=== PATIENT | female | born 1970 | race Hispanic/Latino ===

== ENCOUNTER 2020-06-30 13:04 | Emergency (ER) | payer OTHER ==
[~2020-06-30] VITALS: Ht 157.5 cm; Wt 81.6 kg
[2020-06-30] MEDS ORDERED: ONDANSETRON HCL INJ 2MG/ML 2ML 2 MG/ML VIAL IV STA (13:10)
[2020-06-30] MEDS ORDERED: SODIUM CHLORIDE 0.9% 1000ML 1,000 ML IV STA (13:10)
[2020-06-30] MEDS ORDERED: PANTOPRAZOLE 40 MG 10ML VIAL IV STA (13:10)
[2020-06-30] MEDS ORDERED: KETOROLAC TROMETHAMINE 30 MG/ML VIAL IV STA (13:10)
[2020-06-30] MEDS ORDERED: MORPHINE SULFATE INJ 4 MG/ML INJ 1ML IV PRN (13:15)
[2020-06-30] MEDS ORDERED: MAGNESIUM/ALUMINUM/SIMETHICONE 30 ML UDC PO ONE (13:15)
[2020-06-30 13:37] LABS: BASOPHILS % 0.7 % (0.0-1.0); EOSINOPHILS # (AUTO) 0.1 (0.0-0.4); EOSINOPHILS % 1.3 % (0.0-6.0); HEMATOCRIT 40.4 % (34.2-44.1); HEMOGLOBIN 13.6 g/dL (12.0-16.0); LYMPHOCYTES # (AUTO) 1.8 (1.0-3.2); LYMPHOCYTES % 38.3 % (18.0-39.1); MEAN CORPUSCULAR HEMOGLOBIN 28.2 pg (28-32); MEAN CORPUSCULAR HGB CONC 33.7 g/dL (31-35); MEAN CORPUSCULAR VOLUME 83.8 fL (81-99); MONOCYTES # (AUTO) 0.3 (0.2-0.8); MONOCYTES % 6.1 % (4.4-11.3); NEUTROPHILS # (AUTO) 2.5 (2.1-6.9); NEUTROPHILS % 53.4 % (38.7-80.0); PLATELET COUNT 267 x10e3/uL (140-360); RED BLOOD COUNT 4.82 x10e6/uL (3.6-5.1); RED CELL DISTRIBUTION WIDTH 13.2 % (11.7-14.4)
--- NOTE | 2020-06-30 13:42 | Emergency Department Note ---
History of Present Illnes History of Present Illness Chief Complaint: Abdominal Complaints History of Present Illness This is a 49 year old female arrives to the ED with complaints of diffuse abdominal pain intermittent for the past one month. Patient denies any nausea vomiting or diarrhea. Patient states her PCP given her ciprofloxacin comments that she controls her diabetes that she wants a clear answer which is why she came to the ED today. Chief Complaint Comment PATIENT IN FROM [facility] WITH COMPLAINTS OF ABDOMINAL PAIN OFF AND ON X 1 MONTH; STATES SHE SAW HER PRIMARY CARE PHYSICIAN ON MONDAY AND WAS GIVEN ABX AND TOLD TO SEE A GI SPECIALIST, BUT SHE STATES SHE DID NOT HAVE TIME TO WAIT. PATIENT ALSO WITH UNCONTROLLED DIABETES, PATIENT STATES THAT SHE HAS NOT BEEN TAKING HER DIABETIC MEDICATION X 1 YEAR. PATIENT ALERT AND ORIENTED, RESP EVEN AND NONLABORED, APPEARS IN NO DISTRESS, RATES PAIN 8/10. DENIES NAUSEA, VOMITING, OR DIARRHEA Historian: Patient Arrival Mode: Car Onset (how long ago): week(s) Severity: mild Duration (how long): week(s) Timing of current episode: constant Progression: waxing and waning Chronicity: new Context: Denies recent illness, Denies recent immobilization Relieving factors: none Exacerbating factors: none Associated symptoms: Denies fever/chills, Denies loss of appetite, Denies nausea/vomiting, Denies weakness Past Medical/Family History Physician Review I have reviewed the patient's past medical and family history. Any updates have been documented here. Past Medical History Recent Fever: No Clinical Suspicion of Infectio: No New/Unexplained Change in Ment: No Past Medical History: Hypertension, Diabetes Past Surgical History: Hysterectomy Social History Smoking Cessation: Never Smoker Physically hurt or threatened: No Other Last Tetanus: U Review of Systems Review of Systems Constitutional: Reports no symptoms EENTM: Reports no symptoms Cardiovascular: Reports no symptoms Respiratory: Reports no symptoms Gastrointestinal: Reports as per HPI, Reports abdominal pain Genitourinary: Reports no symptoms Musculoskeletal: Reports no symptoms Integumentary: Reports no symptoms Neurological: Reports no symptoms Psychological: Reports no symptoms Endocrine: Reports no symptoms Hematological/Lymphatic: Reports no symptoms Physical Exam Related Data Allergies: Coded Allergies: No Known Allergies (Unverified , 08/23/19) Triage Vital Signs Vital Signs Date Time Temp Pulse Resp B/P (MAP) Pulse Ox O2 Delivery O2 Flow Rate FiO2 06/30/20 13:07 98.2 86 18 160/71 98 Room Air Vital signs reviewed: Yes Physical Exam CONSTITUTIONAL Constitutional: Present well-developed, Present well-nourished HENT HENT: Present normocephalic, Present atraumatic, Present oropharynx clear/[address], Present nose normal HENT L/R: Present left ext ear normal, Present right ext ear normal EYES Eyes: Reports PERRL, Reports conjunctivae normal NECK Neck: Present ROM normal PULMONARY Pulmonary: Present effort normal, Present breath sounds normal CARDIOVASCULAR Cardiovascular: Present regular rhythm, Present heart sounds normal, Present capillary refill normal, Present normal rate GASTROINTESTINAL Abdominal: Present soft, Present nontender, Present bowel sounds normal GENITOURINARY Genitourinary: Present exam deferred SKIN Skin: Present warm, Present dry MUSCULOSKELETAL Musculoskeletal: Present ROM normal NEUROLOGICAL Neurological: Present alert, Present oriented x 3, Present no gross motor or sensory deficits PSYCHOLOGICAL Psychological: Present mood/affect normal, Present judgement normal Results Laboratory Laboratory Laboratory Tests Test 06/30/20 13:15 06/30/20 13:14 Lab results reviewed: Yes Imaging Imaging results reviewed: Yes Impressions IMPRESSION: 1. Mild nonspecific fat stranding anterior to the urinary bladder which may represent sequelae of prior hysterectomy. Otherwise no acute intra-abdominal or intrapelvic abnormality. Assessment & Plan Medical Decision Making MDM This patient presents with abdominal pain of unclear etiology. A CT scan was performed to evaluate for potential causes of the abdominal pain, however, neither the clinical exam nor the CT has identified an emergent etiology for the abdominal pain. Specifically, given the benign exam, the laboratory studies, and unremarkable CT, I have a very low suspicion for appendicitis, ischemic bowel, bowel perforation, or any other life threatening disease. I have discussed with the patient the level of uncertainty with undifferentiated abdominal pain and clearly explained the need to follow-up as noted on the discharge instructions, or return to the Emergency Department immediately if the pain worsens, develops fever, persistent and uncontrollable vomiting, or for any new symptoms or concerns. Assessment & Plan Final Impression: (1) UTI (urinary tract infection) Depart Disposition: HOME, SELF-CARE Last Vital Signs Date Time Temp Pulse Resp B/P (MAP) Pulse Ox O2 Delivery O2 Flow Rate FiO2 06/30/20 13:07 98.2 86 18 160/71 98 Room Air Home Meds Active Scripts Sulfamethoxazole/Trimethoprim (BACTRIM DS TABLET) 1 Each Tablet, 1 TAB PO BID, #20 TAB Prov:HARRIET WEINER DO 06/30/20 Medications in the ED Sodium Chloride 1,000 ml @ 0 mls/hr Q0M STAT IV ; Start 06/30/20 at 13:10; Stop 06/30/20 at 13:14; Status DC Ketorolac Tromethamine 30 mg ONCE STAT IV ; Start 06/30/20 at 13:10; Stop 06/30/20 at 13:28; Status DC Ondansetron HCl 4 mg NOW STAT IV ; Start 06/30/20 at 13:10; Stop 06/30/20 at 13:28; Status DC Pantoprazole Sodium 40 mg NOW STAT IV ; Start 06/30/20 at 13:10; Stop 06/30/20 at 13:28; Status DC Magnesium Aluminum Silicate 30 ml ONCE ONCE PO ; Start 06/30/20 at 13:15; Stop 06/30/20 at 13:28; Status DC Morphine Sulfate 4 mg ONCE PRN IV SEVERE PAIN (7-10); Start 06/30/20 at 13:15; Stop 07/07/20 at 13:14 HARRIET WEINER DO Jun 30, 2020 13:42
[2020-06-30 13:52] LABS: INR 0.93; PROTHROMBIN TIME 12.9 seconds (11.9-14.5)
[2020-06-30 13:52] LABS: CLARITY,URINE SL CLOUDY (CLEAR); COLOR,URINE YELLOW (YELLOW); LEUKOCYTE ESTERASE ,URINE SMALL (NEGATIVE); NITRITE,URINE NEGATIVE (NEGATIVE); PROTEIN,URINE DIPSTICK NEGATIVE (NEGATIVE)
[2020-06-30 13:53] LABS: BILIRUBIN,URINE NEGATIVE (NEGATIVE); KETONES,URINE NEGATIVE (NEGATIVE); URINE UROBILINOGEN 0.2 mg/dL (0.2 - 1)
[2020-06-30 14:04] LABS: BACTERIA,URINE MANY /HPF; EPITHELIAL CELLS,URINE FEW /LPF
[2020-06-30 14:04] LABS: ALANINE AMINOTRANSFERASE 19 IU/L (0-55); ALBUMIN 3.6 g/dL (3.5-5.0); ALBUMIN/GLOBULIN RATIO 0.9 (0.8-2.0); ALKALINE PHOSPHATASE 68 IU/L (40-150); ANION GAP 10.8 mmol/L (8-16); BLOOD UREA NITROGEN 25 mg/dL (7-26); BUN/CREATININE RATIO 28 (6-25); CALCIUM 9.2 mg/dL (8.4-10.2); CARBON DIOXIDE 24 mmol/L (22-29); CHLORIDE 103 mmol/L (98-107); CREATINE KINASE 98 IU/L (29-168); EST GLOMERULAR FILTRATION RATE > 60 ML/MIN (60-); POTASSIUM 3.8 mmol/L (3.5-5.1); SODIUM 134 mmol/L (136-145)
[2020-06-30 14:05] LABS: WBC,URINE (MAN) 21-50 /HPF (0-5)
[2020-06-30 14:05] LABS: GLUCOSE 412 mg/dL (74-118)
[2020-06-30] MEDS ORDERED: CEFTRIAXONE SOD 1 GM/NS 50 ML 50 ML IV ONE (14:45)
[2020-06-30] MEDS ORDERED: INSULIN REGULAR, HUMAN 100 UNIT/1 ML 3ML VIAL IV ONE (14:45)
--- NOTE | 2020-06-30 14:48 | Diagnostic Imaging Report ---
X-ray chest frontal view History: Abdominal pain Comparison: None Findings: Lines and tubes: Not applicable Central airways: Unremarkable Cardiac silhouette: Unremarkable Mediastinal silhouettes: Unremarkable Pleura: No pleural effusion, pneumothorax or thickening Diaphragms: Unremarkable Lungs: No focal lung disease Skeletal structures: Unremarkable Extrathoracic soft tissues: Unremarkable Impression: No acute cardiopulmonary disease Signed by: Carloz Smith MD on 06/30/2020 2:45 PM
--- NOTE | 2020-06-30 15:56 | Diagnostic Imaging Report ---
EXAM: CT Abdomen and Pelvis WITH contrast INDICATION: ^Y ^diffuse abd pain ^20200630 ^1440 COMPARISON: None. TECHNIQUE: Abdomen and pelvis were scanned utilizing a multidetector helical scanner from the lung base to the pubic symphysis after administration of IV contrast. Coronal and sagittal reformations were obtained. Dose modulation, iterative reconstruction, and/or weight based adjustment of the mA/kV was utilized to reduce the radiation dose to as low as reasonably achievable. Routine protocol was performed. Scan was performed when during portal venous phase. IV CONTRAST: 150 mL of Isovue-370 ORAL CONTRAST: Water COMPLICATIONS: None RADIATION DOSE: Total ^Y ^diffuse abd pain ^20200630 ^1440 Estimated effective dose: (DLP x 0.015 x size factor) mSv CTDIvol has been reviewed. It is below the limits set by the Radiation Protocol Committee (RPC). FINDINGS: LINES and TUBES: None. LOWER THORAX: Bibasilar atelectasis. HEPATOBILIARY: No focal hepatic lesions. No biliary ductal dilation. GALLBLADDER: No radio-opaque stones or sludge. No wall thickening. SPLEEN: No splenomegaly. PANCREAS: No focal masses or ductal dilatation. ADRENALS: No adrenal nodules KIDNEYS/URETERS: Kidneys enhance symmetrically. No hydronephrosis. No cystic or solid mass lesions. No stones. GI TRACT: No abnormal distention, wall thickening, or evidence of bowel obstruction. Appendix is not clearly identified. There is however no fat stranding or adenopathy in the right lower quadrant to suggest appendicitis. PELVIC ORGANS/BLADDER: Status post hysterectomy. Urinary bladder is unremarkable. LYMPH NODES: No lymphadenopathy. VESSELS: Unremarkable. PERITONEUM / RETROPERITONEUM: No free air or fluid. There is mild nonspecific fat stranding anterior to the urinary bladder which may represent sequelae of prior hysterectomy. No focal fluid collection. BONES: Unremarkable. SOFT TISSUES: Unremarkable. IMPRESSION: 1. Mild nonspecific fat stranding anterior to the urinary bladder which may represent sequelae of prior hysterectomy. Otherwise no acute intra-abdominal or intrapelvic abnormality. Signed by: Juan Ruiz MD on 06/30/2020 3:53 PM
[2020-06-30] MEDS ORDERED: BACTRIM DS TAB1 EACH PO (17:18)
[2020-06-30] MEDS ORDERED: SODIUM CHLORIDE 0.9% 50ML 50 ML ONE (18:38)
[2020-06-30] MEDS ORDERED: IOPAMIDOL 370 MG/ML 200 ML INFUS..BTL INJ ONE (18:38)
--- OUTSIDE RECORDS SUMMARY | 2020-07-02 19:03 | XMS REPORT | Continuity of Care Document ---
Author Author [facility] t Organization [facility] Address [address] [place] [address] Phone Unavailable Care Team Providers Care Game Producer Name Role Phone NO, PCP PCP Unavailable Leslie WEINER Attpollo Unavailable Payers Payer Name Policy Type Policy Number Effective Date Expiration Date S ource Problems This patient has no known problems. Allergies, Adverse Reactions, Alerts Allergy Name Allergy Type Status Severity Reaction(s) Onset Date Inacti ve Date Treating Clinician Comments Source No Known Allergies DA Active U 2019-05-11 00:00:00 [facility] No Known Allergies DA Active U 2014-11-11 00:00:00 [facility] Medications This patient has no known medications. Procedures Procedure Date / Time Performed Performing Clinician Sour e X-ray of chest, two views 2019-08-23 00:00:00 AXEL REED [facility] Encounters Start Date/Time End Date/Time Encounter Type Admission Type Attendi [facility] Care Department Encounter ID Source 2019-08-23 17:12:00 2019-08-23 21:45:00 Departed Emergency Room 1 HARRIET WEINER [facility] [id number] [facility] Results Test Description Test Time Test Comments Results Result Comments Source CT ABDOMEN/PELVIS W 2020-06-30 15:47:00 [facility] 1970 Sex: F [facility] [address] [address] Patient Name: MIKI AVITIA MR #: [id number] : 1970 Age/Sex: 49/F Req #: [id number] [facility] Physician: Ordered by: HARRIET WEINER DO Report #: [id number] Location: ER Room/Bed: Procedure: [id number] CT/CT ABDOMEN/PELVIS W Exam Date: 06/30/20 Exam Time: 1440 REPORT STATUS: Signed EXAM: CT Abdomen and Pelvis WITH contrast INDICATION: Y diffuse abd pain 20200630 COMPARISON: None. TECHNIQUE: Abdomen and pelvis were scanned utilizing a multidetector helical scanner from the lung base to the pubic symphysis after administration of IV contrast. Coronal and sagittal reformations were obtained. Dose modulation, iterative reconstruction, and/or weight based adjustment of the mA/kV was utilized to reduce the radiation dose to as low as reasonably achievable. Routine protocol was performed. Scan was performed when during portal venous phase. IV CONTRAST: 150 mL of Isovue-370 ORAL CONTRAST: Water COMPLICATIONS: None RADIATION DOSE: Total Y diffuse abd pain 20200630 1440 Estimated effective dose: (DLP x 0.015 x size factor) mSv CTDIvol has been reviewed. It is below the limits set by the Radiation Protocol Committee (RPC). FINDINGS: LINES and TUBES: None. LOWER THORAX: Bibasilar atelectasis. HEPATOBILIARY: No focal hepatic lesions. No biliary ductal dilation. GALLBLADDER: No radio-opaque stones or sludge. No wall thickening. SPLEEN: No splenomegaly. PANCREAS: No focal masses or ductal dilatation. ADRENALS: No adrenal nodules KIDNEYS/URETERS: Kidneys enhance symmetrically. No hydronephrosis. No cystic or solid mass lesions. No stones. GI TRACT: No abnormal distention, wall thickening, or evidence of bowel obstruction. Appendix is not clearly identified. There is however no fat stranding or adenopathy in the right lower quadrant to suggest appendicitis. PELVIC ORGANS/BLADDER: Status post hysterectomy. Urinary bladder is unremarkable. LYMPH NODES: No lymphadenopathy. VESSELS: Unremarkable. PERITONEUM / RETROPERITONEUM: No free air or fluid. There is mild nonspecific fat stranding anterior to the urinary bladder which may represent sequelae of prior hysterectomy. No focal fluid collection. BONES: Unremarkable. SOFT TISSUES: Unremarkable. IMPRESSION: 1. Mild nonspecific fat stranding anterior to the urinary bladder which may represent sequelae of prior hysterectomy. Otherwise no acute intra-abdominal or intrapelvic abnormality. Signed by: Juan Ruiz MD on 06/30/2020 3:53 PM Dictated By: TRUDY RUIZ MD 52 Transcribed By: DEWEY on 06/30/201552 COPY TO: HARRIET WEINER DO CHEST SINGLE (PORTABLE) 2020-06-30 14:44:00 [facility] : 1970 Sex: F [facility] [address] [address] Patient Name: MIKI AVITIA MR #: [id number] : 1970 Age/Sex: 49/F Req #: [id number] Adm Physician: Ordered by: HARRIET WEINER DO Report #: [id number] Location: ER Room/Bed: Procedure: [id number] DX/CHEST SINGLE (PORTABLE) Exam Date: 06/30/20 Exam Time: 1345 REPORT STATUS: Signed X-ray chest frontal view History: Abdominal pain Comparison: None Findings: Lines and tubes: Not applicable Central airways: Unremarkable Cardiac silhouette: Unremarkable Mediastinal silhouettes: Unremarkable Pleura: No pleural effusion, pneumothorax or thickening Diaphragms: Unremarkable Lungs: No focal lung disease Skeletal structures: Unremarkable Extrathoracic soft tissues: Unremarkable Impression: No acute cardiopulmonary disease Signed by: Carloz Landis MD on 06/30/2020 2:45 PM Dictated By: CARLOZ LANDIS MD 1445 Transcribed By: DEWEY on 06/30/20 1445 COPY TO: HARRIET WEINER DO Sodium Level 2019-08-23 20:02:00 Test Item Sodium Level (test code = 2951-2) 135 136-145 L [facility] HospitalPotassium [id number] 20:02:00* Test Item Value Reference Range Interpretation Comments Potassium Level (test code = 2823-3) 4.5 3.5-5.1 [facility] HospitalChloride Yprzz7885-51-00 20:02:00* Test Item Value Reference Range Interpretation Comments Chloride Level (test code = 2075-0) 102 98-107 [facility] HospitalCarbon Dioxide [id number] 20:02:00* Test Item Value Reference Range Interpretation Comments Carbon Dioxide Level (test code = 8-9) 20 22-29 L [facility] HospitalAnion [id number] 20:02:00* Test Item Value Reference Range Interpretation Comments Anion Gap (test code = 78218-4) 17.5 8-16 H [facility] HospitalBlood Urea Vcwjflad9803-22-05 20:02:00* Test Item Value Reference Range Interpretation Comments Blood Urea Nitrogen (test code = 3094-0) 10 7-26 [facility] HospitalCreatinine2019-12-27 20:02:00* Test Item Value Reference Range Interpretation Comments Creatinine (test code = 2160-0) 0.74 0.57-1.11 [facility] HospitalBUN/Creatinine Ookeu7140-63-16 20:02:00* Test Item Value Reference Range Interpretation Comments BUN/Creatinine Ratio (test code = 3097-3) 14 6-25 [facility] HospitalEstimat Glomerular Filtration Rate 2019-08-23 20:02:00* Test Item Value Reference Range Interpretation Comments Estimat Glomerular Filtration Rate (test code = 671886154) > 60 >60 Ranges were taken from the National Kidney Disease Education Program and the [facility] Foundation literature.Reference ranges:60 or greater: Bwxziy78-48 ( for 3 consecutive months): Chronic kidney disease 15 or less: Kidney failureMidland Memorial HospitalGlucose Glzdq3560-74-89 20:02:00* Test Item Value Reference Range Interpretation Comments Glucose Level (test code = PNI0568) 287 74-118 H [facility] HospitalCalcium Kqlsy2744-38-20 20:02:00* Test Item Value Reference Range Interpretation Comments Calcium Level (test code = 79596-0) 9.2 8.4-10.2 [facility] HospitalTotal Kgnvimrdu8722-97-49 20:02:00* Test Item Value Reference Range Interpretation Comments Total Bilirubin (test code = 1975-2) 0.3 0.2-1.2 [facility] HospitalAspartate Amino Transf (AST/SGOT) 2019-08-23 20:02:00* Test Item Value Reference Range Interpretation Comments Aspartate Amino Transf (AST/SGOT) (test code = Aspartate Amino Transf (AST/SGOT)) 22 5-34 [facility] HospitalAlanine Aminotransferase (ALT/SGPT) 2019-08-23 20:02:00* Test Item Value Reference Range Interpretation Comments Alanine Aminotransferase (ALT/SGPT) (test code = 1742-6) 23 0-55 [facility] HospitalTotal Soowgrx9427-33-83 20:02:00* Test Item Value Reference Range Interpretation Comments Total Protein (test code = 2885-2) 7.5 6.5-8.1 [facility] HospitalAlbumin2019-12-27 20:02:00* Test Item Value Reference Range Interpretation Comments Albumin (test code = 1751-7) 3.4 3.5-5.0 L [facility] HospitalGlobulin2019-12-27 20:02:00* Test Item Value Reference Range Interpretation Comments Globulin (test code = 87816-1) 4.1 2.3-3.5 H [facility] HospitalAlbumin/Globulin Eniia4090-30-69 20:02:00 * Test Item Value Reference Range Interpretation Comments Albumin/Globulin Ratio (test code = 1759-0) 0.8 0.8-2.0 [facility] HospitalAlkaline Zeavgsbpjds5508-28-64 20:02:00* Test Item Value Reference Range Interpretation Comments Alkaline Phosphatase (test code = 6768-6) 64 40-150 [facility] HospitalCHEST 2 EUCUF8623-51-74 20:00:[address] [address] Patient Name: MIKI AVITIA MR #: [id number] : 1970 Age/Sex: 48/F Req #: [id number] Adm Physician: Ordered by: AXEL REED PLATFORM POWER TECHNICIAN Report #: [id number] Location: ER Room/Bed: Procedure: DX/CHEST 2 VIEWS Exam Date: 08/23/19 Exam Ti me: 1899 REPORT STATUS: Signed E XAMINATION: CHEST 2 VIEWS INDICATION: Cough COMPARISON: Non e FINDINGS: TUBES and LINES: None. LUNGS: Lungs are not well inflated. Left basilar hazy opacity. There is no evidence of pneumonia or pulmonary edema. PLEURA: No pleural effusion or pneumothorax. HEAR T AND MEDIASTINUM: The cardiomediastinal silhouette is unremarkable. B ONES AND SOFT TISSUES: No acute osseous lesion. Soft tissues are unremarkabl e. UPPER ABDOMEN: No free air under the diaphragm. IMPRESSION: Low lung volumes. Left basilar hazy opacity could be due to atelectasis or pneumonia. Signed by: Jag Queen DO on 08/23/2019 8:01 PM Dicta fariba By: JAG QUEEN DO 00 COPY TO: JAYSHREE REED PLATFORM POWER TECHNICIAN Influenza Virus Types A,B Nfihdxz1312-16-55 19:11:00* Test Item Value Reference Range Interpretation Comments Influenza Virus Types A,B Antigen (test code = 14856-0) POSITIVE FLU A NEGATIVE H Results called to at 1909 on 08/23/19 by Jazz Cardona. RB OK.Results called to i n infection control at 1909 on 08/23/19 by Jazz Cardona.[facility] HospitalGroup A Streptococcus Cnaehv2526-44-41 18:25:00* Test Item Value Reference Range Interpretation Comments Group A Streptococcus Screen (test code = 41787-8) POSITIVE NEG ATIVE [facility] HospitalWhite Blood Wyxcd8113-64-61 18:24:00* Test Item Value Reference Range Interpretation Comments White Blood Count (test code = 6690-2) 7.53 4.8-10.8 [facility] HospitalRed Blood Wdjmr0949-04-82 18:24:00* Test Item Value Reference Range Interpretation Comments Red Blood Count (test code = 789-8) 5.45 3.6-5.1 H [facility] HospitalHemoglobin2019-12-27 18:24:00* Test Item Value Reference Range Interpretation Comments Hemoglobin (test code = 76438-5) 15.4 12.0-16.0 [facility] HospitalHematocrit2019-12-27 18:24:00* Test Item Value Reference Range Interpretation Comments Hematocrit (test code = 4544-3) 46.3 34.2-44.1 H [facility] HospitalMean Corpuscular Arkxsa3548-74-09 18:24:00* Test Item Value Reference Range Interpretation Comments Mean Corpuscular Volume (test code = 787-2) 85.0 81-99 [facility] HospitalMean Corpuscular Payfosspak0189-45-27 18:24:00* Test Item Value Reference Range Interpretation Comments Mean Corpuscular Hemoglobin (test code = 785-6) 28.3 28-32 [facility] HospitalMean Corpuscular Hemoglobin Concent 2019-08-23 18:24:00* Test Item Value Reference Range Interpretation Comments Mean Corpuscular Hemoglobin Concent (test code = 786-4) 33.3 31-35 [facility] HospitalRed Cell Distribution Ebxna7310-91-40 18:24:00* Test Item Value Reference Range Interpretation Comments Red Cell Distribution Width (test code = 23253-8) 13.5 11.7 -14.4 [facility] HospitalPlatelet Kjqpk8009-93-48 18:24:00* Test Item Value Reference Range Interpretation Comments Platelet Count (test code = 777-3) 244 140-360 [facility] HospitalNeutrophils (%) (Auto)2019-08-23 18:24:00 * Test Item Value Reference Range Interpretation Comments Neutrophils (%) (Auto) (test code = 45810-5) 79.3 38.7-80.0 [facility] HospitalLymphocytes (%) (Auto)2019-08-23 18:24:00 * Test Item Value Reference Range Interpretation Comments Lymphocytes (%) (Auto) (test code = 736-9) 9.8 18.0-39.1 L [facility] HospitalMonocytes (%) (Auto)2019-08-23 18:24:00* Test Item Value Reference Range Interpretation Comments Monocytes (%) (Auto) (test code = 5905-5) 9.4 4.4-11.3 [facility] HospitalEosinophils (%) (Auto)2019-08-23 18:24:00 * Test Item Value Reference Range Interpretation Comments Eosinophils (%) (Auto) (test code = 713-8) 0.7 0.0-6.0 [facility] HospitalBasophils (%) (Auto)2019-08-23 18:24:00* Test Item Value Reference Range Interpretation Comments Basophils (%) (Auto) (test code = 706-2) 0.5 0.0-1.0 [facility] HospitalIM GRANULOCYTES %2019-08-23 18:24:00* Test Item Value Reference Range Interpretation Comments IM GRANULOCYTES % (test code = IM GRANULOCYTES %) 0.3 0.0- 1.0 [facility] HospitalNeutrophils # (Auto)2019-08-23 18:24:00* Test Item Value Reference Range Interpretation Comments Neutrophils # (Auto) (test code = 751-8) 6.0 2.1-6.9 [facility] HospitalLymphocytes # (Auto)2019-08-23 18:24:00* Test Item Value Reference Range Interpretation Comments Lymphocytes # (Auto) (test code = 07156-1) 0.7 1.0-3.2 L [facility] HospitalMonocytes # (Auto)2019-08-23 18:24:00* Test Item Value Reference Range Interpretation Comments Monocytes # (Auto) (test code = 742-7) 0.7 0.2-0.8 [facility] HospitalEosinophils # (Auto)2019-08-23 18:24:00* Test Item Value Reference Range Interpretation Comments Eosinophils # (Auto) (test code = 711-2) 0.1 0.0-0.4 [facility] HospitalBasophils # (Auto)2019-08-23 18:24:00* Test Item Value Reference Range Interpretation Comments Basophils # (Auto) (test code = 704-7) 0.0 0.0-0.1 [facility] HospitalAbsolute Immature Granulocyte (auto 2019-08-23 18:24:00* Test Item Value Reference Range Interpretation Comments Absolute Immature Granulocyte (auto (melissa t code = Absolute Immature Granulocyte (auto) 0.02 0-0.1 [facility] HospitalBASIC METABOLIC [id number] 10:56:00 * Test Item Value Reference Range Interpretation Comments SODIUM (test code = NA) 136 mmol/L 136-145 N POTASSIUM (test code = K) 3.9 mmol/L 3.5-5.1 N CHLORIDE (test code = CL) 102.0 mmol/L 98-107 N CARBON DIOXIDE (test code = CO2) 26.0 mmol/L 21-32 N ANION GAP (test code = GAP) 11.9 10-20 N GLUCOSE (test code = GLU) 300 mg/dL 74-106 H BLOOD UREA NITROGEN (test code = BUN) 14 mg/dL 7-18 N GLOMERULAR FILTRATION RATE (test code = GFR) > 60 mL/min >=60 Estimated GFR by using Modified MDRD formula.Chronic kidney disease is defined as either kidney damageor GFR <60 mL/min/1.73 m2 for >3 months. CREATININE (test code = CREAT) 0.80 mg/dL 0.55-1.02 N Note change in reference range due to change in reagent. BUN/CREATININE RATIO (test code = BUN/CREA) 18.5 10-20 N CALCIUM (test code = CA) 9.8 mg/dL 8.5-10.1 N HEPATIC FUNCTION [id number] 10:56:00* Test Item Value Reference Range Interpretation Comments TOTAL PROTEIN (test code = PROT) 9.1 gram/dL 6.4-8.2 H ALBUMIN (test code = ALB) 3.9 g/dL 3.4-5.0 N GLOBULIN (test code = GLOB) 5.2 gram/dL 2.7-4.2 H ALBUMIN/GLOBULIN RATIO (test code = A/G) 0.8 0.75-1.50 N BILIRUBIN TOTAL (test code = BILT) 0.40 mg/dL 0.0-1.0 N BILIRUBIN DIRECT (test code = BILD) 0.09 mg/dL 0.0-0.20 N SGOT/AST (test code = AST) 9 IUnit/L 15-37 L SGPT/ALT (test code = ALT) 23 IUnit/L 12-78 N ALKALINE PHOSPHATASE TOTAL (test code = ALKP) 77 IUnit/L 45-117 N Note change in reference range due to change in reagent. [id number] 10:56:00* Test Item Value Reference Range Interpretation Comments LIPASE (test code = LIP) 123 U/L 73.0-393.0 N HCG SERUM [id number] 10:56:00* Test Item Value Reference Range Interpretation Comments HCG SERUM QUAL (test code = HCGQL) NEGATIVE NEGATIVE This HCGQL test is NOT applicable for MALE patients.Check with nurse about probable order error.If Tumor Marker Test needed, nurse should order test "HCGTU"(Test #550.71495) [id number] 10:56:00* Test Item Value Reference Range Interpretation Comments TROPONIN-I (test code = TROPI) <0.015 ng/mL 0-0.045 N BASIC METABOLIC [id number] 10:53:00* Test Item Value Reference Range Interpretation Comments SODIUM (test code = NA) 136 mmol/L 136-145 N POTASSIUM (test code = K) 3.9 mmol/L 3.5-5.1 N CHLORIDE (test code = CL) 102.0 mmol/L 98-107 N CARBON DIOXIDE (test code = CO2) mmol/L 21-32 ANION GAP (test code = GAP) 10-20 GLUCOSE (test code = GLU) mg/dL 74-106 BLOOD UREA NITROGEN (test code = BUN) mg/dL 7-18 GLOMERULAR FILTRATION RATE (test code = GFR) mL/min >=60 CREATININE (test code = CREAT) mg/dL 0.55-1.02 BUN/CREATININE RATIO (test code = BUN/CREA) 10-20 CALCIUM (test code = CA) mg/dL 8.5-10.1 HEPATIC FUNCTION [id number] 10:53:00* Test Item Value Reference Range Interpretation Comments TOTAL PROTEIN (test code = PROT) gram/dL 6.4-8.2 ALBUMIN (test code = ALB) g/dL 3.4-5.0 GLOBULIN (test code = GLOB) gram/dL 2.7-4.2 ALBUMIN/GLOBULIN RATIO (test code = A/G) 0.75-1.50 BILIRUBIN TOTAL (test code = BILT) mg/dL 0.0-1.0 BILIRUBIN DIRECT (test code = BILD) mg/dL 0.0-0.20 SGOT/AST (test code = AST) IUnit/L 15-37 SGPT/ALT (test code = ALT) IUnit/L 12-78 ALKALINE PHOSPHATASE TOTAL (test code = ALKP) IUnit/L 45-117 [id number] 10:53:00* Test Item Value Reference Range Interpretation Comments LIPASE (test code = LIP) U/L 73.0-393.0 HCG SERUM [id number] 10:53:00* Test Item Value Reference Range Interpretation Comments HCG SERUM QUAL (test code = HCGQL) NEGATIVE NEGATIVE This HCGQL test is NOT applicable for MALE patients.Check with nurse about probable order error.If Tumor Marker Test needed, nurse should order test "HCGTU"(Test #550.29125) [id number] 10:53:00* Test Item Value Reference Range Interpretation Comments TROPONIN-I (test code = TROPI) ng/mL 0-0.045 URINALYSIS [id number] 10:46:00* Test Item Value Reference Range Interpretation Comments UA COLOR (test code = COLU) LIGHT YELLOW YELLOW UA APPEARANCE (test code = APPU) CLEAR CLEAR UA GLUCOSE DIPSTICK (test code = DGLUU) 300-500 (3+) mg/dL NEGATIVE UA BILIRUBIN DIPSTICK (test code = BILU) NEGATIVE NEGATIVE UA KETONE DIPSTICK (test code = KETU) NEGATIVE mg/dL NEGATIVE UA SPECIFIC GRAVITY (test code = SGU) 1.010 1.001-1.035 UA BLOOD DIPSTICK (test code = CAMERON) NEGATIVE NEGATIVE UA PH DIPSTICK (test code = ROGER) 6.0 5.0-8.0 UA PROTEIN DIPSTICK (test code = PROU) TRACE (15) mg/dL Neg-15 UA UROBILINIOGEN DIPSTICK (test code = URO) 0.2 mg/dL 0.0-0.2 UA NITRITE DIPSTICK (test code = SAJI) NEGATIVE NEGATIVE UA LEUKOCYTE ESTERASE W REFLEX (test code = LEUUR) 1+ NEG ATIVE A UA WBC (test code = WBCU) per HPF 0-5 UA RBC (test code = RBCU) per HPF 0-5 UA EPITHELIAL CELLS (test code = EPIU) per HPF Few UA BACTERIA (test code = BACU) per HPF NONE Urine Source? Clean CatchURINALYSIS [id number] 10:46:00* Test Item Value Reference Range Interpretation Comments UA COLOR (test code = COLU) LIGHT YELLOW YELLOW UA APPEARANCE (test code = APPU) CLEAR CLEAR UA GLUCOSE DIPSTICK (test code = DGLUU) 300-500 (3+) mg/dL NEGATIVE UA BILIRUBIN DIPSTICK (test code = BILU) NEGATIVE NEGATIVE UA KETONE DIPSTICK (test code = KETU) NEGATIVE mg/dL NEGATIVE UA SPECIFIC GRAVITY (test code = SGU) 1.010 1.001-1.035 UA BLOOD DIPSTICK (test code = CAMERON) NEGATIVE NEGATIVE UA PH DIPSTICK (test code = ROGER) 6.0 5.0-8.0 UA PROTEIN DIPSTICK (test code = PROU) TRACE (15) mg/dL Neg-15 UA UROBILINIOGEN DIPSTICK (test code = URO) 0.2 mg/dL 0.0-0.2 UA NITRITE DIPSTICK (test code = SAJI) NEGATIVE NEGATIVE UA LEUKOCYTE ESTERASE W REFLEX (test code = LEUUR) 1+ NEG ATIVE A UA WBC (test code = WBCU) 6-10 per HPF 0-5 A UA RBC (test code = RBCU) 0-2 #/HPF 0-5 UA EPITHELIAL CELLS (test code = EPIU) FEW per HPF FEW UA BACTERIA (test code = BACU) NONE SEEN #/HPF NONE UA MUCUS (test code = MUCU) FEW #/LPF FEW Urine Source? Clean CatchBASIC METABOLIC [id number] 10:44:00* Test Item Value Reference Range Interpretation Comments SODIUM (test code = NA) 136 mmol/L 136-145 N POTASSIUM (test code = K) 3.9 mmol/L 3.5-5.1 N CHLORIDE (test code = CL) 102.0 mmol/L 98-107 N CARBON DIOXIDE (test code = CO2) mmol/L 21-32 ANION GAP (test code = GAP) 10-20 GLUCOSE (test code = GLU) mg/dL 74-106 BLOOD UREA NITROGEN (test code = BUN) mg/dL 7-18 GLOMERULAR FILTRATION RATE (test code = GFR) mL/min >=60 CREATININE (test code = CREAT) mg/dL 0.55-1.02 BUN/CREATININE RATIO (test code = BUN/CREA) 10-20 CALCIUM (test code = CA) mg/dL 8.5-10.1 HEPATIC FUNCTION [id number] 10:44:00* Test Item Value Reference Range Interpretation Comments TOTAL PROTEIN (test code = PROT) gram/dL 6.4-8.2 ALBUMIN (test code = ALB) g/dL 3.4-5.0 GLOBULIN (test code = GLOB) gram/dL 2.7-4.2 ALBUMIN/GLOBULIN RATIO (test code = A/G) 0.75-1.50 BILIRUBIN TOTAL (test code = BILT) mg/dL 0.0-1.0 BILIRUBIN DIRECT (test code = BILD) mg/dL 0.0-0.20 SGOT/AST (test code = AST) IUnit/L 15-37 SGPT/ALT (test code = ALT) IUnit/L 12-78 ALKALINE PHOSPHATASE TOTAL (test code = ALKP) IUnit/L 45-117 [id number] 10:44:00* Test Item Value Reference Range Interpretation Comments LIPASE (test code = LIP) U/L 73.0-393.0 HCG SERUM [id number] 10:44:00* Test Item Value Reference Range Interpretation Comments HCG SERUM QUAL (test code = HCGQL) NEGATIVE [id number] 10:44:00* Test Item Value Reference Range Interpretation Comments TROPONIN-I (test code = TROPI) ng/mL 0-0.045 CBC W/O [id number] 10:34:00* Test Item Value Reference Range Interpretation Comments WHITE BLOOD CELL (test code = WBC) 9.3 K/mm3 4.5-12.5 N RED BLOOD CELL (test code = RBC) 5.95 mill/mm3 3.7-5.2 H HEMOGLOBIN (test code = HGB) 16.8 gram/dL 11.5-15.5 H HEMATOCRIT (test code = HCT) 50.7 % 36.0-46.0 H MEAN CELL VOLUME (test code = MCV) 85.2 fL 80-98 N MEAN CELL HGB (test code = MCH) 28.2 picogram 27.0-33.0 N MEAN CELL HGB CONCETRATION (test code = MCHC) 33.1 gram/dL 33.0-36. 0 N RED CELL DISTRIBUTION WIDTH (test code = RDW) 13.4 % 11.6-16. 2 N PLATELET COUNT (test code = PLT) 287 K/mm3 150-450 N MEAN PLATELET VOLUME (test code = MPV) 10.1 fL 6.7-11.0 N
== END 2020-06-30 17:33 | disposition home or self-care (01) ==
LOC: ER 13:32
DX: N39.0 Urinary tract infection, site not specified (principal); R10.9 Unspecified abdominal pain; E11.65 Type 2 diabetes mellitus with hyperglycemia; I10 Essential (primary) hypertension
CPT/HCPCS: 36415; 71045; 74177; 80053; 81001; 82550; 82553; 82948; 83690; 84484; 85025; 85610; 99284; C9113; J0696; J1817; J1885; J2270; J2405; J7030; Q9967

== ENCOUNTER 2021-03-27 12:34 | Emergency (ER) | payer BC ==
[~2021-03-27] VITALS: Ht 157.5 cm; Wt 77.1 kg
[~2021-03-27 12:34] MED LIST: BACTRIM DS TAB1 EACH PO
[2021-03-27] MEDS ORDERED: ONDANSETRON HCL INJ 2MG/ML 2ML 2 MG/ML VIAL IV STA (13:10)
[2021-03-27] MEDS ORDERED: MORPHINE SULFATE INJ 2 MG/ML SYR IV STA (13:10)
[2021-03-27] MEDS ORDERED: SODIUM CHLORIDE 0.9% 1000ML 1,000 ML IV ONE (13:15)
[2021-03-27 13:16] LABS: BASOPHILS % 0.4 % (0.0-1.0); EOSINOPHILS % 0.2 % (0.0-6.0); HEMATOCRIT 44.4 % (34.2-44.1); HEMOGLOBIN 14.4 g/dL (12.0-16.0); LYMPHOCYTES # (AUTO) 1.4 (1.0-3.2); LYMPHOCYTES % 25.8 % (18.0-39.1); MEAN CORPUSCULAR HEMOGLOBIN 27.7 pg (28-32); MEAN CORPUSCULAR HGB CONC 32.4 g/dL (31-35); MEAN CORPUSCULAR VOLUME 85.4 fL (81-99); MONOCYTES # (AUTO) 0.6 (0.2-0.8); MONOCYTES % 11.9 % (4.4-11.3); NEUTROPHILS # (AUTO) 3.3 (2.1-6.9); NEUTROPHILS % 61.5 % (38.7-80.0); PLATELET COUNT 221 x10e3/uL (140-360); RED CELL DISTRIBUTION WIDTH 13.2 % (11.7-14.4)
[2021-03-27 13:34] LABS: ALANINE AMINOTRANSFERASE 43 IU/L (0-55); ALBUMIN 3.6 g/dL (3.5-5.0); ALBUMIN/GLOBULIN RATIO 0.8 (0.8-2.0); ALKALINE PHOSPHATASE 59 IU/L (40-150); ANION GAP 16.3 mmol/L (8-16); BLOOD UREA NITROGEN 13 mg/dL (7-26); BUN/CREATININE RATIO 17 (6-25); CALCIUM 9.2 mg/dL (8.4-10.2); CARBON DIOXIDE 20 mmol/L (22-29); CHLORIDE 106 mmol/L (98-107); CREATINE KINASE 80 IU/L (29-168); CREATININE, SERUM 0.77 mg/dL (0.57-1.11); EST GLOMERULAR FILTRATION RATE 80 ML/MIN (60-); GLUCOSE 166 mg/dL (74-118); POTASSIUM 4.3 mmol/L (3.5-5.1); SODIUM 138 mmol/L (136-145)
[2021-03-27 13:56] LABS: LIPASE 33 U/L (8-78)
[2021-03-27] MEDS ORDERED: CASIRIVIMAB/IMDEVIMAB 600 MG INJ IV ONE (14:00)
[2021-03-27] MEDS ORDERED: CASIRIVIMAB/IMDEVIMAB 600 MG in SODIUM CHLORIDE 0.9% 100 ML IV ONE (14:30)
== END 2021-03-27 16:43 | disposition home or self-care (01) ==
LOC: ER 13:13
DX: U07.1 COVID-19 (principal); R10.33 Periumbilical pain; R11.0 Nausea; R42 Dizziness and giddiness
CPT/HCPCS: 36415; 71045; 80053; 82550; 82553; 82948; 83690; 84484; 84702; 85025; 93005; 99284; J2270; J2405; J7030; U0002